=== PATIENT | male | born 1995 | race American Indian/Alaskan Native ===

== ENCOUNTER 2018-08-31 02:21 | Emergency (ER) | payer OTHER ==
[2018-08-31] MEDS ORDERED: Sodium Chloride 0.9% 1,000 ML IV ONE (02:46)
[2018-08-31 03:25] LABS: BASO % 0.9 % (0.0-2.0); EOS # 0.2 K/uL (0.0-0.7); EOS % 4.6 % (0.0-4.0); HEMOGLOBIN 13.1 g/dL (12.0-18.0); LYMPH # 1.8 K/uL (1.0-4.3); LYMPH % 44.5 % (20.0-40.0); MEAN CELL VOLUME 94.8 fL (80.0-94.0); MEAN CORPUSCULAR HEMOGLOBIN 32.7 pg (27.0-31.0); MEAN CORPUSCULAR HGB CONC 34.5 g/dL (33.0-37.0); MEAN PLATELET VOLUME 8.7 fL (7.2-11.7); MONO # 0.5 K/uL (0.0-0.8); NEUT # 1.5 K/uL (1.8-7.0); NRBC % 0.1 % (0.0-2.0); RED CELL DISTRIBUTION WIDTH 13.6 % (11.5-14.5)
[2018-08-31 03:38] LABS: ALB/GLOB RATIO 1.6 (1.0-2.1); ALBUMIN 3.9 g/dL (3.5-5.0); ALT/SGPT 17 U/L (21-72); AST/SGOT 28 U/L (17-59); BLOOD UREA NITROGEN 17 mg/dL (9-20); CALCIUM 9.2 mg/dl (8.6-10.4); GFR NON-AFRICAN AMERICAN > 60; LIPASE 49 U/L (23-300)
[2018-08-31] MEDS ORDERED: Aluminum Hydroxide/Magnesium Hydroxide Susp (30 mL) PO STA (04:09)
--- NOTE | 2018-08-31 04:09 | C.PDOC ---
History Of Present Illness 23 year old male presents to the emergency department with complaints of 2 episodes of vomiting and epigastric pain. Patient denies fever, diarrhea. Patient states that his last meal was yesterday afternoon. Time Seen by Provider: 08/31/18 02:35 Chief Complaint (Nursing): Abdominal Pain History Per: Patient History/Exam Limitations: no limitations Onset/Duration Of Symptoms: Days (1) Current Symptoms Are (Timing): Still Present Location Of Pain/Discomfort: Epigastric Associated Symptoms: Vomiting, Loss Of Appetite. denies: Fever, Diarrhea Past Medical History Reviewed: Historical Data, Nursing Documentation, Vital Signs Vital Signs: Last Vital Signs Temp 98.5 F 08/31/18 02:28 Pulse 67 08/31/18 02:28 Resp 14 08/31/18 02:28 BP 128/66 08/31/18 02:28 Pulse Ox 99 08/31/18 02:28 - Medical History PMH: No Chronic Diseases Surgical History: No Surg Hx Family History: States: No Known Family Hx - Social History Hx Alcohol Use: No Hx Substance Use: No Review Of Systems Constitutional: Negative for: Fever, Chills Cardiovascular: Negative for: Chest Pain Gastrointestinal: Positive for: Vomiting, Abdominal Pain. Negative for: Diarrhea Physical Exam - Physical Exam Appears: Non-toxic, No Acute Distress Skin: Normal Color, Warm, Dry Head: Atraumatic, Normacephalic Eye(s): bilateral: Normal Inspection, PERRL, EOMI Oral Mucosa: Moist Chest: Symmetrical, No Tenderness Cardiovascular: Rhythm Regular, No Murmur Respiratory: No Rales, No Rhonchi, No Wheezing Gastrointestinal/Abdominal: Soft, Tenderness (mild tenderness to epigastric area and LUQ), No Guarding, No Rebound Extremity: Normal ROM Neurological/Psych: Oriented x3, Normal Speech, Normal Cognition ED Course And Treatment - Laboratory Results Result Diagrams: 08/31/18 03:21 08/31/18 03:21 Lab Results: Total Bilirubin 0.2 mg/dL (0.2-1.3) 08/31/18 03:21 AST 28 U/L (17-59) 08/31/18 03:21 ALT 17 U/L (21-72) L 08/31/18 03:21 Alkaline Phosphatase 88 U/L (38-126) 08/31/18 03:21 Total Protein 6.5 g/dL (6.3-8.3) 08/31/18 03:21 Albumin 3.9 g/dL (3.5-5.0) 08/31/18 03:21 Globulin 2.5 gm/dL (2.2-3.9) 08/31/18 03:21 Albumin/Globulin Ratio 1.6 (1.0-2.1) 08/31/18 03:21 Lipase 49 U/L (23-300) 08/31/18 03:21 O2 Sat by Pulse Oximetry: 99 (RA) Pulse Ox Interpretation: Normal Medical Decision Making Medical Decision Making: Plan: Chemistry CBC Maalox 30ml PO Pepcid 20mg IVP NaCl IV Fluids Zofran 4mg IVP pt feeling better after meds, tolerates po fluids. Disposition Counseled Patient/Family Regarding: Studies Performed, Diagnosis, Need For Followup, Rx Given - Disposition Referrals: [facility] [Outside] [facility] [Outside] Disposition: HOME/ ROUTINE Disposition Time: 06:42 Condition: IMPROVED Additional Instructions: Please drink clear fluids for the next 1-2 days and plain foods such as toast, crackers. Add food as tolerated. Take ondansetron for nausea if needed and take Pepcid once a day. Return to ER for any worse symptoms. Instructions: [place] Diet, Gastritis (DC) Forms: [facility] (Chilean), General Discharge Instructions - Clinical Impression Clinical Impression: Gastritis - PA / X RAY NURSE / Resident Statement MD/DO has reviewed & agrees with the documentation as recorded. - Scribe Statement The provider has reviewed the documentation as recorded by the Scribe ([place]) All medical record entries made by the Scribe were at my direction and personally dictated by me. I have reviewed the chart and agree that the record accurately reflects my personal performance of the history, physical exam, medical decision making, and the department course for this patient. I have also personally directed, reviewed, and agree with the discharge instructions and disposition.
[2018-08-31] MEDS ORDERED: Aluminum Hydroxide/Magnesium Hydroxide Susp (30 mL) ONE (04:16)
[2018-08-31 05:51] VITALS: BP 133/72; PULSE 72; RESP 17; TEMP 98.1
[2018-08-31 06:44] VITALS: O2SAT 99
== END 2018-08-31 07:08 | disposition home or self-care (01) ==
LOC: C.ER 02:21
DX: K29.70 Gastritis, unspecified, without bleeding (principal)
CPT/HCPCS: 80053; 83690; 85025; 96361; 96374; 96375; 99285; J2405; J7030